=== PATIENT | male | born 1955 | race African-American/Black ===

== ENCOUNTER 2022-04-07 09:20 | Inpatient (IN) | payer MEDICARE, MEDICAID ==
[~2022-04-07] VITALS: Ht 177.8 cm; Wt 102.1 kg
[~2022-04-07 09:20] MED LIST: ALBU18HF2 IH; APIX2.5T PO; ASPI-1406 PO; DILT-26 PO; FURO-152 PO; LIP40 PO
[2022-04-07] MEDS ORDERED: NITROGLYCERIN 0.4MG TABLET SL SL PRN ×2 (09:45→11:45)
[2022-04-07] MEDS ORDERED: ASPIRIN 81MG TABLET PO ONE (09:45)
[2022-04-07 09:56] LABS: BASOPHILS % 0.3 % (0.0-2.0); CHLORIDE 113 mEq/L (98-107); EOSINOPHILS % 3.1 % (0.0-5.0); HEMATOCRIT. 32.7 % (42.0-52.0); HEMOGLOBIN. 10.8 g/dL (14.0-18.0); LYMPHOCYTES % 20.8 % (20.0-50.0); MEAN CORPUSCULAR HEMOGLOBIN 26.7 pg (28.0-32.0); MEAN CORPUSCULAR VOLUME 80.9 fL (80.0-94.0); MEAN PLATELET VOLUME 6.9 fl (7.4-10.4); MONOCYTES % 9.4 % (2.0-8.0); NEUTROPHILS % 66.4 % (40.0-76.0); PLATELET 251 x1000/uL (130-400); RED BLOOD CELL COUNT 4.04 mill/uL (4.7-6.1); RED CELL DISTRIBUTION WIDTH 15.9 % (11.6-14.6)
[2022-04-07 10:09] LABS: ETHANOL BLOOD < 10 mg/dL
[2022-04-07] MEDS ORDERED: DILTIAZEM HCL 90MG TABLET PO ONE (11:30)
[2022-04-07] MEDS ORDERED: DILTIAZEM HCL 5MG/ML 5ML VIAL IV ONE (11:30)
[2022-04-07] MEDS ORDERED: ONDANSETRON HCL 4MG/2ML INJ IV PRN (11:45)
[2022-04-07] MEDS ORDERED: MAGNESIUM/ALUMINUM HYDROXIDE/SIMETHICONE 30ML UDC PO PRN (11:45)
[2022-04-07] MEDS ORDERED: GUAIFENESIN 200MG/10ML SUGAR FREE UDC PO PRN (11:45)
[2022-04-07] MEDS ORDERED: ZOLPIDEM TARTRATE 5MG TABLET PO PRN (11:45)
[2022-04-07] MEDS ORDERED: DOCUSATE SODIUM 100MG CAPSULE PO PRN (11:45)
[2022-04-07] MEDS ORDERED: ACETAMINOPHEN 325MG TABLET PO PRN (11:45)
[2022-04-07] MEDS ORDERED: IPRATROPIUM/ALBUTEROL 0.5-3(2.5)MG/3ML NEB NEB PRN (11:45)
[2022-04-07] MEDS ORDERED: FUROSEMIDE 40MG/4ML VIAL IVP ONE (12:00)
[2022-04-07 12:25] LABS: ETHANOL BLOOD < 10 mg/dL; HDL CHOLESTEROL 47 mg/dL (40-59); LDL CHOLESTEROL 81 mg/dL (5-100); T4 FREE 1.09 ng/dL (0.76-1.46); TOTAL IRON BINDING CAPACITY 320 ug/dL (250-450)
[2022-04-07 12:55] LABS: FOLIC ACID (FOLATE) SERUM 18.5 ng/mL (>5.38)
[2022-04-07 14:00] VITALS: BP 156/119
[2022-04-07] MEDS ORDERED: FUROSEMIDE 40MG/4ML VIAL IVP NR (14:00)
[2022-04-07] MEDS ORDERED: ENOXAPARIN 100MG/ML SYR SUBCUT SCH (15:45)
[2022-04-07 16:00] VITALS: BP 150/94
[2022-04-07] MEDS: DILTIAZEM HCL 60MG TABLET PO SCH (18:14)
[2022-04-07 20:00] VITALS: BP 143/118
[2022-04-07 20:15] LABS: INR 1.2; PROTHROMBIN TIME 12.7 sec (9.6-11.0)
[2022-04-07 20:27] LABS: CREATINE KINASE MB FRACTION 1.2 ng/mL (0.5-3.6)
[2022-04-07] MEDS: FUROSEMIDE 40MG/4ML VIAL IVP SCH (21:20)
[2022-04-08] VITALS: BP 124/94
[2022-04-08] MEDS: DILTIAZEM HCL 60MG TABLET PO SCH ×4 (00:34→19:25)
[2022-04-08 01:45] LABS: CREATINE KINASE 88 IU/L (39-308); CREATINE KINASE MB FRACTION < 1.0 ng/mL (0.5-3.6)
[2022-04-08 05:20] VITALS: BP 136/100
[2022-04-08 05:58] LABS: INR 1.2; PROTHROMBIN TIME 12.4 sec (9.6-11.0)
[2022-04-08 05:59] LABS: BASOPHILS % 0.3 % (0.0-2.0); EOSINOPHILS % 3.3 % (0.0-5.0); HEMATOCRIT. 34.4 % (42.0-52.0); HEMOGLOBIN. 11.3 g/dL (14.0-18.0); LYMPHOCYTES % 23.1 % (20.0-50.0); MEAN CORPUSCULAR HEMOGLOBIN 26.5 pg (28.0-32.0); MEAN CORPUSCULAR VOLUME 80.5 fL (80.0-94.0); MEAN PLATELET VOLUME 6.9 fl (7.4-10.4); MONOCYTES % 9.5 % (2.0-8.0); NEUTROPHILS % 63.8 % (40.0-76.0); PLATELET 279 x1000/uL (130-400); RED BLOOD CELL COUNT 4.28 mill/uL (4.7-6.1); RED CELL DISTRIBUTION WIDTH 15.8 % (11.6-14.6)
[2022-04-08 06:23] LABS: CHLORIDE 108 mEq/L (98-107)
[2022-04-08 06:33] LABS: PHOSPHORUS 3.2 mg/dL (2.5-4.9)
[2022-04-08 08:00] VITALS: BP 144/102
[2022-04-08] MEDS: ASPIRIN 325MG EC TABLET PO SCH (08:39)
[2022-04-08] MEDS: ENOXAPARIN 100MG/ML SYR SUBCUT SCH (08:39)
[2022-04-08] MEDS: FAMOTIDINE 20MG TABLET PO SCH (08:39)
[2022-04-08] MEDS: FUROSEMIDE 40MG/4ML VIAL IVP SCH ×2 (08:40→20:36)
[2022-04-08 11:45] VITALS: BP 143/99
[2022-04-08 16:00] VITALS: BP 149/99
[2022-04-08 16:41] LABS: *AMPHETAMINES SCREEN URINE NEGATIVE (NEGATIVE); *BARBITURATES SCREEN URINE NEGATIVE (NEGATIVE); *BENZODIAZEPINES SCREEN URINE NEGATIVE (NEGATIVE); *COCAINE SCREEN URINE NEGATIVE (NEGATIVE); CANNABINOID URINE SCREEN NEGATIVE (NEGATIVE); METHADONE URINE SCREEN NEGATIVE (NEGATIVE); OPIATES URINE SCREEN NEGATIVE (NEGATIVE); PHENCYCLIDINE URINE SCREEN NEGATIVE (NEGATIVE)
[2022-04-08 20:00] VITALS: BP 126/88
[2022-04-08] MEDS: ACETAMINOPHEN 325MG TABLET PO PRN (20:36)
[2022-04-09] VITALS: BP 117/91
[2022-04-09] MEDS: DILTIAZEM HCL 60MG TABLET PO SCH ×4 (00:39→18:53)
[2022-04-09 04:00] VITALS: BP 131/104
[2022-04-09] MEDS: ACETAMINOPHEN 325MG TABLET PO PRN (05:18)
[2022-04-09] MEDS: ENOXAPARIN 100MG/ML SYR SUBCUT SCH (07:59)
[2022-04-09] MEDS: FUROSEMIDE 40MG/4ML VIAL IVP SCH ×2 (07:59→20:22)
[2022-04-09 08:00] VITALS: BP 154/106
[2022-04-09] MEDS: ASPIRIN 325MG EC TABLET PO SCH (08:00)
[2022-04-09] MEDS: CLONIDINE 0.1MG TABLET PO PRN (08:00)
[2022-04-09] MEDS: FAMOTIDINE 20MG TABLET PO SCH (08:00)
[2022-04-09] MEDS ORDERED: METHYLPREDNISOLONE SOD SUCC 125 MG/2 ML VIAL IV SCH (09:45)
[2022-04-09 12:38] VITALS: BP 141/111
[2022-04-09 16:00] VITALS: BP 139/85
[2022-04-09 20:00] VITALS: BP 134/87
[2022-04-10] VITALS: BP 127/100
[2022-04-10] MEDS: DILTIAZEM HCL 60MG TABLET PO SCH ×4 (00:26→17:14)
[2022-04-10 04:00] VITALS: BP 147/118
[2022-04-10] MEDS: CLONIDINE 0.1MG TABLET PO PRN (04:54)
[2022-04-10 08:21] VITALS: BP 123/68
[2022-04-10] MEDS: ASPIRIN 325MG EC TABLET PO SCH (09:12)
[2022-04-10] MEDS: FUROSEMIDE 40MG/4ML VIAL IVP SCH ×2 (09:12→20:12)
[2022-04-10] MEDS: FAMOTIDINE 20MG TABLET PO SCH (09:12)
[2022-04-10] MEDS: ENOXAPARIN 120MG/0.8ML SYR SUBCUT SCH (09:13)
[2022-04-10 12:09] VITALS: BP 111/88
[2022-04-10 16:00] VITALS: BP 117/78
[2022-04-10 20:00] VITALS: BP 132/84
[2022-04-11] VITALS: BP 118/89
[2022-04-11] MEDS: DILTIAZEM HCL 60MG TABLET PO SCH ×3 (00:36→12:35)
[2022-04-11 04:00] VITALS: BP 139/63
[2022-04-11 07:45] VITALS: BP 106/77
[2022-04-11] MEDS: FAMOTIDINE 20MG TABLET PO SCH (09:12)
[2022-04-11] MEDS: ASPIRIN 325MG EC TABLET PO SCH (09:12)
[2022-04-11] MEDS: ENOXAPARIN 120MG/0.8ML SYR SUBCUT SCH (09:14)
[2022-04-11] MEDS: FUROSEMIDE 40MG/4ML VIAL IVP SCH (09:16)
[2022-04-11] MEDS ORDERED: FURO-151 MT (11:19)
[2022-04-11 11:20] VITALS: BP 110/78
[2022-04-11 11:55] VITALS: BP 110/78
== END 2022-04-11 16:32 | disposition home or self-care (01) | DRG 133 ==
LOC: ER 09:36 → 6WST 11:32 → EDBEDREQTM 11:36 → EDBEDREQ 11:36 → ENRESERV 12:07
PROVIDERS: ADMIT Internal Medicine; ATTEND Internal Medicine
DX: J96.01 Acute respiratory failure with hypoxia (principal); N17.0 Acute kidney failure with tubular necrosis; I50.43 Acute on chronic combined systolic (congestive) and diastolic (congestive) heart failure; I42.9 Cardiomyopathy, unspecified; E44.0 Moderate protein-calorie malnutrition; D63.8 Anemia in other chronic diseases classified elsewhere; I48.91 Unspecified atrial fibrillation; I11.0 Hypertensive heart disease with heart failure; Z20.822 Contact with and (suspected) exposure to COVID-19; E78.00 Pure hypercholesterolemia, unspecified; R73.03 Prediabetes; F17.210 Nicotine dependence, cigarettes, uncomplicated; F14.90 Cocaine use, unspecified, uncomplicated; F12.90 Cannabis use, unspecified, uncomplicated; Z79.899 Other long term (current) drug therapy; Z68.32 Body mass index [BMI] 32.0-32.9, adult; Z79.01 Long term (current) use of anticoagulants
CPT/HCPCS: 36415; 71045; 80053; 80061; 80305; 80320; 82550; 82553; 82607; 82746; 83036; 83540; 83550; 83735; 83880; 84100; 84439; 84443; 84484; 85025; 87426; 93005; 93970; 97161; 97165; 97166; 97535; 99291; C9803; J1650; J1940; J2930; J3490; G0480

== ENCOUNTER 2024-05-07 00:59 | Inpatient (IN) | payer MEDICARE, MEDICAID ==
[~2024-05-07] VITALS: Ht 177.8 cm; Wt 112.5 kg
[~2024-05-07 00:59] MED LIST changes: +COR25 MT; -DILT-26 PO; +DOXA-14 MT; +DOXA-15 MT; +FURO-151 MT; -FURO-152 PO; +HYDR100T26 PO; +ISOS60TA76 MT; +PANT40TA51 MT
[2024-05-07 02:53] LABS: BASOPHILS % 0.5 % (0.0-2.0); CHLORIDE 115 mEq/L (98-107); EOSINOPHILS % 4.9 % (0.0-5.0); HEMATOCRIT. 33.5 % (42.0-52.0); LYMPHOCYTES % 21.5 % (20.0-50.0); MEAN CORPUSCULAR HEMOGLOBIN 27.4 pg (28.0-32.0); MEAN CORPUSCULAR HGB CONC 32.8 g/dL (31.0-37.0); MEAN CORPUSCULAR VOLUME 83.6 fL (80.0-94.0); MEAN PLATELET VOLUME 7.9 fl (7.4-10.4); MONOCYTES % 7.8 % (2.0-8.0); NEUTROPHILS % 65.3 % (40.0-76.0); PLATELET 210 x1000/uL (130-400); POTASSIUM 4.3 mEq/L (3.5-5.1); RED CELL DISTRIBUTION WIDTH 16.7 % (11.6-14.6); SODIUM 142 mEq/L (136-145); WHITE BLOOD COUNT 4.5 x1000/uL (4.5-11.0)
[2024-05-07 02:54] LABS: CARBON DIOXIDE 21 mEq/L (21-32)
[2024-05-07 02:55] LABS: CALCIUM 9.7 mg/dL (8.7-10.4)
[2024-05-07 02:59] LABS: CREATININE 3.2 mg/dL (0.6-1.3); GLUCOSE 106 mg/dL (70-105); UREA NITROGEN BLOOD 24 mg/dL (9-23)
[2024-05-07 03:00] LABS: ETHANOL BLOOD < 10 mg/dL (<10)
[2024-05-07 03:04] LABS: TROPONIN I HIGH SENSITIVITY 70 ng/L (3.0-53)
[2024-05-07] MEDS: NITROGLYCERIN OINT 1GM/INCH UDPKT TD NR (03:21)
[2024-05-07] MEDS: FUROSEMIDE 40MG/4ML VIAL IV NR (03:21)
[2024-05-07] MEDS ORDERED: IPRATROPIUM/ALBUTEROL 0.5-3(2.5)MG/3ML NEB HHN PRN (09:30)
[2024-05-07] MEDS ORDERED: NALOXONE HCL 0.4MG/ML VIAL IV PRN (13:00)
[2024-05-07] MEDS: MORPHINE SULFATE 2 MG/ML INJ (NOT FOR IM USE) IV PRN (13:05)
[2024-05-07] MEDS: CLONIDINE 0.1MG TABLET PO PRN (13:11)
[2024-05-07] MEDS: ISOSORBIDE MONONITRATE 60MG TABLET SR 24HR PO SCH (14:27)
[2024-05-07] MEDS: ASPIRIN 81MG EC TABLET PO NR (14:28)
[2024-05-07] MEDS: HYDRALAZINE HCL 100MG TABLET PO SCH (14:28)
[2024-05-07] MEDS: FUROSEMIDE 40MG/4ML VIAL IVP SCH (15:15)
[2024-05-07] MEDS: CARVEDILOL 12.5MG TABLET PO NR (15:15)
[2024-05-07] MEDS ORDERED: ONDANSETRON HCL 4MG/2ML INJ IV PRN (17:00)
[2024-05-07] MEDS ORDERED: DOCUSATE SODIUM 100MG CAPSULE PO PRN (17:00)
[2024-05-07 18:21] LABS: TROPONIN I HIGH SENSITIVITY 59 ng/L (3.0-53)
[2024-05-07] MEDS ORDERED: APIXABAN 2.5 MG TABLET PO SCH (21:00)
[2024-05-07] MEDS ORDERED: ZOLPIDEM TARTRATE 5MG TABLET PO PRN (21:00)
[2024-05-07] MEDS: ATORVASTATIN CALCIUM 40MG TABLET PO SCH (22:17)
[2024-05-07] MEDS: CARVEDILOL 12.5MG TABLET PO SCH (22:18)
[2024-05-07 22:22] LABS: CREATINE KINASE MB FRACTION 2.8 ng/mL (0.5-3.6)
[2024-05-07] MEDS: ACETAMINOPHEN 325MG TABLET PO PRN (22:24)
[2024-05-07] MEDS ORDERED: IOHEXOL-300 100 ML BOTTLE ONE (23:46)
[2024-05-07 23:55] LABS: CLARITY URINE CLEAR (CLEAR); COLOR URINE YELLOW (YELLOW); GLUCOSE URINE NEGATIVE (NEGATIVE); KETONES URINE NEGATIVE (NEGATIVE); LEUKOCYTE ESTERASE URINE NEGATIVE (NEGATIVE); NITRITE URINE NEGATIVE (NEGATIVE); OCCULT BLOOD URINE NEGATIVE (NEGATIVE); PH URINE 5.5 (4.5-8.0); PROTEIN URINE 2+ (NEGATIVE); SPECIFIC GRAVITY URINE 1.009 (1.005-1.030); UROBILINOGEN URINE 0.2 E.U./dL (0.2-1.0)
[2024-05-08 00:03] LABS: *AMPHETAMINES SCREEN URINE NEGATIVE (NEGATIVE); *BARBITURATES SCREEN URINE NEGATIVE (NEGATIVE); *BENZODIAZEPINES SCREEN URINE NEGATIVE (NEGATIVE); *COCAINE SCREEN URINE NEGATIVE (NEGATIVE); METHADONE URINE SCREEN NEGATIVE (NEGATIVE); OPIATES URINE SCREEN PRESUMPTIVE POSITIVE (NEGATIVE)
[2024-05-08 00:04] LABS: CANNABINOID URINE SCREEN NEGATIVE (NEGATIVE); ECSTASY MDMA SCREEN URINE NEGATIVE (NEGATIVE); PHENCYCLIDINE URINE SCREEN NEGATIVE (NEGATIVE)
[2024-05-08 00:29] LABS: BACTERIA URINE NONE SEEN; RBC URINE NONE SEEN /hpf (0-2); SQUAMOUS EPITHELIAL CELL URINE NONE SEEN /lpf (RARE/1+); WBC URINE NONE SEEN /hpf (0-2)
[2024-05-08 00:47] LABS: TROPONIN I HIGH SENSITIVITY 51 ng/L (3.0-53)
[2024-05-08 08:17] VITALS: BP 161/97; PULSE 83; RESP 20; TEMP 36.22512; O2SAT 98
[2024-05-08 08:27] VITALS: BP 161/97; PULSE 83; RESP 20; TEMP 36.2512
[2024-05-08 08:27] LABS: BASOPHILS % 0.3 % (0.0-2.0); EOSINOPHILS % 4.6 % (0.0-5.0); HEMATOCRIT. 30.9 % (42.0-52.0); HEMOGLOBIN. 10.1 g/dL (14.0-18.0); LYMPHOCYTES % 14.6 % (20.0-50.0); MEAN CORPUSCULAR HEMOGLOBIN 27.1 pg (28.0-32.0); MEAN CORPUSCULAR HGB CONC 32.6 g/dL (31.0-37.0); MEAN CORPUSCULAR VOLUME 83.1 fL (80.0-94.0); MEAN PLATELET VOLUME 7.6 fl (7.4-10.4); MONOCYTES % 8.4 % (2.0-8.0); NEUTROPHILS % 72.1 % (40.0-76.0); PLATELET 217 x1000/uL (130-400); RED BLOOD CELL COUNT 3.72 mill/uL (4.7-6.1); RED CELL DISTRIBUTION WIDTH 16.5 % (11.6-14.6); WHITE BLOOD COUNT 4.5 x1000/uL (4.5-11.0)
[2024-05-08 08:43] LABS: POTASSIUM 4.9 mEq/L (3.5-5.1)
[2024-05-08 08:44] LABS: CALCIUM 9.8 mg/dL (8.7-10.4)
[2024-05-08 08:49] LABS: CREATINE KINASE MB FRACTION 2.9 ng/mL (0.5-3.6); CREATININE 3.7 mg/dL (0.6-1.3)
[2024-05-08] MEDS: PANTOPRAZOLE 40MG DR TABLET PO SCH (09:16)
[2024-05-08] MEDS: ISOSORBIDE MONONITRATE 60MG TABLET SR 24HR PO SCH (09:17)
[2024-05-08 12:00] VITALS: BP 104/67; PULSE 75; RESP 18; TEMP 36.50292; O2SAT 100
[2024-05-08 16:00] VITALS: BP 128/91; PULSE 72; RESP 20; TEMP 36.61404; O2SAT 100
[2024-05-08 20:00] VITALS: BP 137/93; PULSE 69; RESP 18; TEMP 35.89176; O2SAT 98
[2024-05-09] VITALS (7 sets, daily range): BP systolic 128–154; BP diastolic 75–88; PULSE 65–95; RESP 16–24; TEMP 36.05844–37.00296; O2SAT 93–100
[2024-05-09] MEDS: IPRATROPIUM/ALBUTEROL 0.5-3(2.5)MG/3ML NEB NEB PRN (06:41)
[2024-05-09 06:58] LABS: BASOPHILS % 0.6 % (0.0-2.0); EOSINOPHILS % 6.2 % (0.0-5.0); HEMATOCRIT. 29.6 % (42.0-52.0); HEMOGLOBIN. 9.7 g/dL (14.0-18.0); LYMPHOCYTES % 17.4 % (20.0-50.0); MEAN CORPUSCULAR HEMOGLOBIN 27.4 pg (28.0-32.0); MEAN CORPUSCULAR HGB CONC 32.9 g/dL (31.0-37.0); MEAN CORPUSCULAR VOLUME 83.2 fL (80.0-94.0); MEAN PLATELET VOLUME 7.8 fl (7.4-10.4); MONOCYTES % 8.8 % (2.0-8.0); PLATELET 202 x1000/uL (130-400); RED BLOOD CELL COUNT 3.56 mill/uL (4.7-6.1); RED CELL DISTRIBUTION WIDTH 16.5 % (11.6-14.6); WHITE BLOOD COUNT 3.4 x1000/uL (4.5-11.0)
[2024-05-09 07:00] LABS: POTASSIUM 4.7 mEq/L (3.5-5.1)
[2024-05-09 07:02] LABS: CALCIUM 9.3 mg/dL (8.7-10.4)
[2024-05-09 07:06] LABS: CREATININE 3.6 mg/dL (0.6-1.3)
[2024-05-10] VITALS: BP 121/80; PULSE 80; RESP 18; TEMP 36.50292; O2SAT 100
[2024-05-10 04:01] VITALS: BP_SYST 145; BP_SYST 153; BP_DIAS 102; BP_DIAS 84; PULSE 89; RESP 20; TEMP 36.28068; O2SAT 98
[2024-05-10 05:39] LABS: POTASSIUM 4.8 mEq/L (3.5-5.1)
[2024-05-10 05:40] LABS: CALCIUM 9.8 mg/dL (8.7-10.4)
[2024-05-10 05:45] LABS: CREATININE 3.1 mg/dL (0.6-1.3)
[2024-05-10 06:25] LABS: BASOPHILS % 0.4 % (0.0-2.0); EOSINOPHILS % 5.7 % (0.0-5.0); HEMATOCRIT. 30.4 % (42.0-52.0); HEMOGLOBIN. 9.8 g/dL (14.0-18.0); LYMPHOCYTES % 16.5 % (20.0-50.0); MEAN CORPUSCULAR HEMOGLOBIN 27.2 pg (28.0-32.0); MEAN CORPUSCULAR HGB CONC 32.3 g/dL (31.0-37.0); MEAN CORPUSCULAR VOLUME 84.1 fL (80.0-94.0); MONOCYTES % 10.4 % (2.0-8.0); PLATELET 216 x1000/uL (130-400); RED BLOOD CELL COUNT 3.62 mill/uL (4.7-6.1); RED CELL DISTRIBUTION WIDTH 16.8 % (11.6-14.6); WHITE BLOOD COUNT 3.9 x1000/uL (4.5-11.0)
[2024-05-10 08:00] VITALS: BP 144/98; PULSE 100; RESP 20; TEMP 36.22512; O2SAT 99
[2024-05-10 12:00] VITALS: BP 164/112; PULSE 78; RESP 20; TEMP 36.33624; O2SAT 99
[2024-05-10] MEDS ORDERED: ASPI-1406 PO (13:03)
[2024-05-10] MEDS ORDERED: DOXA-14 MT (13:03)
[2024-05-10] MEDS ORDERED: DOXA-15 MT (13:03)
[2024-05-10] MEDS ORDERED: ISOS60TA76 MT (13:03)
[2024-05-10] MEDS ORDERED: APIX2.5T PO (13:03)
[2024-05-10] MEDS ORDERED: PANT40TA51 MT (13:03)
[2024-05-10] MEDS ORDERED: COR12 PO (13:03)
[2024-05-10] MEDS ORDERED: HYDR100T26 PO (13:03)
[2024-05-10] MEDS ORDERED: FURO-151 MT (13:03)
[2024-05-10] MEDS ORDERED: LIP40 PO (13:03)
[2024-05-10] MEDS: CLONIDINE 0.1MG TABLET PO PRN (13:28)
[2024-05-10 13:56] VITALS: BP 154/98; PULSE 78; TEMP 97.4; O2SAT 99
== END 2024-05-10 18:24 | disposition home health service (06) | DRG 194 ==
LOC: ER 00:59 → 5WST 04:41 → EDBEDREQ 05:00 → 5WST 05-08 07:15 → 7WST 05-08 08:48
PROVIDERS: ADMIT Internal Medicine; ATTEND Internal Medicine
DX: I13.0 Hypertensive heart and chronic kidney disease with heart failure and stage 1 through stage 4 chronic kidney disease, or unspecified chronic kidney disease (principal); J96.01 Acute respiratory failure with hypoxia; I21.A1 Myocardial infarction type 2; I27.20 Pulmonary hypertension, unspecified; D64.9 Anemia, unspecified; S30.1XXA Contusion of abdominal wall, initial encounter; I50.43 Acute on chronic combined systolic (congestive) and diastolic (congestive) heart failure; N17.9 Acute kidney failure, unspecified; I42.0 Dilated cardiomyopathy; I48.91 Unspecified atrial fibrillation; E78.00 Pure hypercholesterolemia, unspecified; I16.0 Hypertensive urgency; S70.01XA Contusion of right hip, initial encounter; N18.4 Chronic kidney disease, stage 4 (severe); F14.10 Cocaine abuse, uncomplicated; N28.1 Cyst of kidney, acquired; K76.0 Fatty (change of) liver, not elsewhere classified; I42.2 Other hypertrophic cardiomyopathy; Z79.899 Other long term (current) drug therapy; Z79.82 Long term (current) use of aspirin; Z79.01 Long term (current) use of anticoagulants; W18.39XA Other fall on same level, initial encounter; Y93.89 Activity, other specified; Y92.89 Other specified places as the place of occurrence of the external cause; Y99.8 Other external cause status
CPT/HCPCS: 36415; 71045; 74176; 80048; 80305; 80320; 81003; 82550; 82553; 83605; 83735; 83880; 84443; 84484; 85025; 93005; 94640; 99285; J1940; J2270; Q9967; G0480